=== PATIENT | male | born 1950 | race Hispanic/Latino ===

== ENCOUNTER 2019-01-20 05:44 | Day surgery (SDC) | payer OTHER ==
[2019-01-20] MEDS ORDERED: BACTERIOSTATIC SODIUM CHLORIDE 0.9% 30 ML VIAL INFILTRATI ONE (06:15)
[2019-01-20] MEDS ORDERED: ONDANSETRON 4 MG/2 ML INJ IV PRN (07:07)
--- NOTE | 2019-01-20 07:08 | Anesthesia Day of Surgery ---
Anesthesia Day of Surgery - Day of Surgery Patient Examined: Yes Patient H&P Reviewed: Yes Patient is NPO: Yes
--- NOTE | 2019-01-20 07:10 | Anesthesia Consultation ---
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
[2019-01-20] MEDS ORDERED: PROPOFOL 200 MG/20 ML VIAL IV ONE (07:20)
[2019-01-20] MEDS ORDERED: fentaNYL 100 MCG/2 ML INJ ONE ×2 (07:20→08:36)
[2019-01-20] MEDS ORDERED: LIDOCAINE MPF (2%) 20 MG/1 ML VIAL 5 ML ONE (07:20)
[2019-01-20] MEDS ORDERED: LACTATED RINGERS 1,000 ML IV SCH (08:00)
[2019-01-20] MEDS ORDERED: ceFAZolin/STERILE WATER 2 GM/20 ML SYRINGE IV NR (08:00)
[2019-01-20] MEDS ORDERED: WATER FOR IRRIG STERILE 2000 ML IR ONE (08:05)
[2019-01-20] MEDS ORDERED: ONDANSETRON 4 MG/2 ML INJ ONE (08:30)
[2019-01-20] MEDS ORDERED: PHENYLEPHRINE 10 MG/1 ML INJ SDV ONE (08:30)
[2019-01-20] MEDS ORDERED: dexAMETHasone 20 MG/5 ML VIAL ONE (08:30)
[2019-01-20] MEDS ORDERED: GLYCOPYRROLATE 0.4 MG/2 ML INJ ONE (08:30)
--- NOTE | 2019-01-20 08:44 | Post Operative Note ---
Date of procedure: 01/20/19 Pre-op diagnosis: r stone ureter Post-op diagnosis: same Findings: encrusted stebnt Procedure: cysto ureteroscopy stent cjhange Anesthesia: GETA Surgeon: LEVON BROUSSARD Estimated blood loss: none Pathology: list (stone) Specimen disposition: given to patient/family Condition: stable Disposition: PACU
--- NOTE | 2019-01-20 08:46 | Discharge Summary ---
Short Stay Discharge Plan Activity: other (no straining ) Weight Bearing Status: Full Weight Bearing Diet: low fat, low cholesterol, low salt Special Instructions: other (inc fluids ) Durable Medical Equipment Needed Upon Discharge: other (has j stent ) Follow up with: [facility] [Primary Care Provider] - 7 Days LEVON BROUSSARD MD [Staff Physician] - 7 Days
[2019-01-20] MEDS: fentaNYL 100 MCG/2 ML INJ IV PRN ×2 (09:03→09:15)
--- NOTE | 2019-01-20 09:10 | Fluoroscopy Report ---
Fluoroscopy retrograde urography HISTORY: Calculus of right ureter/kidney FINDINGS: 88 seconds of fluoroscopy time was provided by radiology during retrograde urography by the urologist. 6 fluoroscopic images are presented. Finished Gar[employer] film demonstrates a right ureteral stent which is in good position. Right ureteroscopy was performed. 2 stones and gravel were removed with grasper per the operative notes. The right ureteral stent was replaced with good drainage of the right colle cting system on the final image. No images of the left collecting system are provided. Please correla te with the procedural report as needed. Signer Name: Chad Cedeño Jr, MD Signed: 01/20/2019 9:05 AM Workstation Name: [id number]
--- NOTE | 2019-01-20 09:12 | Operative Report ---
PREOPERATIVE DIAGNOSES: Retained stent, right ureteral stone, poorly compliant patient. POSTOPERATIVE DIAGNOSES: Retained stent, right ureteral stone, poorly compliant patient. PROCEDURE: Cystoscopy, insertion of open-ended stent, removal of old stent, ureteroscopy, extraction of stone, retrograde and replacement of stent with a string. SURGEON: Dr. Guillen. ANESTHESIA: General. FINDINGS: This is a gentleman, poorly compliant, has a stent placed at the [facility], has a stone and now presents for treatment. DESCRIPTION OF PROCEDURE: The patient was brought to the operating room and placed on the operating table. Following induction of anesthesia, placed in lithotomy position, prepped and draped in usual sterile fashion. Cystourethroscopy showed an encrusted stent. It was partially removed and we placed an open-ended alongside it, so that we would not damage the ureter. The stent did come out. We were unable to place a wire through the stent. At this point, the open-ended was exchanged for a wire and ureteroscopy showed the stone to be distal. We were able to do a flexible ureteroscopy. This distal stone was extracted with the rigid ureteroscope and given to the patient. The patient tolerated the procedure well. A 7-Venezuel[place] 24 cm J-stent coiled in the kidney and bladder. The patient tolerated the procedure well and brought to recovery in stable condition. JOB# [id number] ROX/JACK
[2019-01-20 09:50] VITALS: BP 148/72
--- NOTE | 2019-01-20 17:45 | Post Anesthesia Evaluation ---
- Post Anesthesia Evaluation Patient Participated: Yes Airway Patent: Yes Stable Respiratory Function: Yes Nausea/Vomiting: No Temp > 96.8F: Yes Pain Manageable: Yes Adequeate Hydration: Yes Anesthesia Complications: No Block Receding Appropriately: Not Applicable Patient on Ventilator: No
== END 2019-01-20 05:45 | disposition home or self-care (01) ==
LOC: OR 05:44
PROVIDERS: ATTEND Urology
DX: N20.1 Calculus of ureter (principal); I10 Essential (primary) hypertension; G47.30 Sleep apnea, unspecified; M19.90 Unspecified osteoarthritis, unspecified site; F32.9 Major depressive disorder, single episode, unspecified; T83.89XA Other specified complication of genitourinary prosthetic devices, implants and grafts, initial encounter; Z72.89 Other problems related to lifestyle; Z91.041 Radiographic dye allergy status; Z79.899 Other long term (current) drug therapy; Z87.891 Personal history of nicotine dependence; Z98.49 Cataract extraction status, unspecified eye; Z85.46 Personal history of malignant neoplasm of prostate; Z98.890 Other specified postprocedural states; Y83.9 Surgical procedure, unspecified as the cause of abnormal reaction of the patient, or of later complication, without mention of misadventure at the time of the procedure; Y92.89 Other specified places as the place of occurrence of the external cause
CPT/HCPCS: 36415; 52332; 52352; 74420; 84132; A4217; C1726; C1758; C1769; C2617; J0690; J1100; J2370; J2405; J2704; J3010; J7120; Q9967

== ENCOUNTER 2021-10-09 09:47 | Inpatient (IN) | payer MEDICARE, OTHER ==
[2021-10-09] MEDS ORDERED: dexAMETHasone 4 MG/ML VIAL IV ONE (10:21)
[2021-10-09] MEDS ORDERED: FUROSEMIDE 40 MG/4 ML INJ IV ONE (10:21)
--- NOTE | 2021-10-09 10:23 | Emergency Department Report ---
ED General Adult HPI - General Chief complaint: Dyspnea/Respdistress Stated complaint: MERRY PUI?: Yes Time Seen by Provider: 10/09/21 10:04 Source: patient, EMS (Verbal report received from emergency medical services. EMS documentation not available at time of chart dictation ), old records reviewed Mode of arrival: Stretcher Limitations: Physical Limitation - History of Present Illness Initial comments: The patient was evaluated in the emergency department for symptoms described in the history of present illness. He/she was evaluated in the context of the global COVID-19 pandemic, which necessitated consideration that the patient might be at risk for infection with the virus that causes COVID-19. Institutional protocols and algorithms that pertain to the evaluation of patients at risk for COVID-19 are in a state of rapid change based on information released by regulatory bodies including the CDC and federal and [facility] organizations. These policies and algorithms were followed during the patient's care in the emergency department. Please note that these policies, procedures and recommendations changed on a rapid basis. During the history and physical examination, I had on complete personal protective equipment. The patient is a 70-year-old gentleman, who typically follows with the [facility]. He reports a COVID-19 diagnosis last week. He presents to the ER today with complaint of painless shortness of breath. EMS reports that the patient is hypoxic in the field. I started the patient on CPAP in the field. The patient feels improved with CPAP and BiPAP here in the emergency room. He endorses loss of taste and smell. He endorses diarrhea. He denies travel, surgery, and immobilization. He endorses lower extremity swelling, and thinks that he might have a history of CHF but is not certain. -: Gradual, days(s) Location: left, right, lower extremity Consistency: constant Improves with: rest, other (Initiation of BiPAP) Worsens with: movement - Related Data Home Medications Medication Instructions Recorded Confirmed Last Taken Acetaminophen [Tylenol] 500 mg PO PRN PRN 01/15/19 01/15/19 Unknown Sertraline [Zoloft] 100 mg PO QDAY 01/15/19 01/15/19 01/19/19 22:00 Tamsulosin [Flomax] 0.4 mg PO QDAY 01/15/19 01/15/19 01/19/19 22:00 hydroCHLOROthiazide [HCTZ] 25 mg PO QDAY 01/15/19 01/15/19 01/19/19 22:00 traMADoL [Ultram] 50 mg PO Q4HR PRN 01/15/19 01/15/19 Unknown Allergies Allergy/AdvReac Type Severity Reaction Status Date / Time Iodinated Contrast Media Allergy SWEATING Verified 01/15/19 15:51 ED Review of Systems ROS: Stated complaint: MERRY Other details as noted in HPI Comment: Unobtainable due to pts medical conditions Constitutional: malaise, weakness ENT: congestion Respiratory: cough, shortness of breath Cardiovascular: edema. denies: chest pain Gastrointestinal: denies: abdominal pain, hematemesis, melena, hematochezia Musculoskeletal: back pain, arthralgia, myalgia Neurological: weakness Hematological/Lymphatic: denies: easy bleeding ED Past Medical Hx - Past Medical History Hx Hypertension: Yes (X 25 YRS) Hx Arthritis: Yes Hx Kidney Stones: Yes Hx HIV: No - Social History Smoking Status: Former Smoker - Medications Home Medications: Home Medications Medication Instructions Recorded Confirmed Last Taken Type Acetaminophen [Tylenol] 500 mg PO PRN PRN 01/15/19 01/15/19 Unknown History Sertraline [Zoloft] 100 mg PO QDAY 01/15/19 01/15/19 01/19/19 22:00 History Tamsulosin [Flomax] 0.4 mg PO QDAY 01/15/19 01/15/19 01/19/19 22:00 History hydroCHLOROthiazide [HCTZ] 25 mg PO QDAY 01/15/19 01/15/19 01/19/19 22:00 History traMADoL [Ultram] 50 mg PO Q4HR PRN 01/15/19 01/15/19 Unknown History ED Physical Exam - General Limitations: Physical Limitation General appearance: alert, anxious, in distress, obese - Head Head exam: Present: atraumatic, normocephalic - Eye Eye exam: Present: normal appearance, EOMI. Absent: nystagmus - ENT ENT exam: Present: normal exam, mucous membranes moist, normal external ear exam - Neck Neck exam: Present: normal inspection, full ROM. Absent: tenderness, men ingismus - Respiratory Respiratory exam: Present: respiratory distress, wheezes, rales, rhonchi, accessory muscle use. Absent: stridor - Cardiovascular Cardiovascular Exam: Present: regular rate, normal rhythm, JVD. Absent: tachycardia, irregular rhythm, systolic murmur, diastolic murmur, rubs, gallop - GI/Abdominal GI/Abdominal exam: Present: soft. Absent: distended, tenderness, guarding, rebound, rigid, pulsatile mass - Rectal Rectal exam: Present: deferred - Extremities Exam Extremities exam: Present: normal inspection, pedal edema, other (2+ pulses noted in the bilateral upper and lower extremities. There is no palpable cord. negative Homans sign. Muscular compartments are soft. The pelvis is stable.). Absent: calf tenderness - Back Exam Back exam: Present: normal inspection. Absent: tenderness, CVA tenderness (R), CVA tenderness (L), paraspinal tenderness, vertebral tenderness - Neurological Exam Neurological exam: Present: alert, oriented X3, other (There is no facial droop. The tongue is midline. EOMI. 5 out of 5 strength in 4 extremities.) - Psychiatric Psychiatric exam: Present: anxious - Skin Skin exam: Present: warm, dry, intact, normal color. Absent: rash ED Course Vital Signs 10/09/21 10:21 Pulse Rate 110 H Respiratory 37 H Rate Blood Pressure 195/105 O2 Sat by Pulse 98 Oximetry - Reevaluation(s) Reevaluation #1: 10/09/21 12:03 Differential diagnosis, include but not limited to: Congestive heart failure, pneumonia, COVID-19, multifactorial respiratory failure Assessment and plan: 70-year-old gentleman, morbidly obese, most likely has obstructive sleep apnea, pulmonary hypertension, congestive heart failure, now complicated by recent diagnosis of COVID-19, with acute hypoxic respiratory f ailure, requiring initiation of BiPAP therapy. Placed patient on BiPAP. Start steroids empirically, and Lasix. Cover with antibiotics. Appreciate the patient ruling in for systemic inflammatory response syndrome. He is volume overloaded. IV fluids contraindicated. Hospital physician, Dr. Mills to admit patient to the medical service. The patient is agreeable to admission and hospitalization. He is improved on BiPAP. Continue isolation precautions. ED Medical Decision Making - Lab Data Result diagrams: 10/09/21 11:23 10/09/21 11:23 Vital Signs 10/09/21 10:21 Pulse Rate 110 H Respiratory 37 H Rate Blood Pressure 195/105 O2 Sat by Pulse 98 Oximetry Lab Results 10/09/21 10/09/21 10/09/21 Range/Units 11:23 11:23 11:23 WBC 14.2 H (4.5-11.0) K/mm3 RBC 3.77 (3.65-5.03) M/mm3 Hgb 9.5 L (11.8-15.2) gm/dl Hct 30.0 L (35.5-45.6) % MCV 80 L (84-94) fl MCH 25 L (28-32) pg MCHC 32 (32-34) % RDW 18.0 H (13.2-15.2) % Plt Count 365 (140-440) K/mm3 Seg Neutrophils % Entry Level Staff Accountant PT 14.1 (12.2-14.9) Sec. INR 0.98 (0.87-1.13) APTT 30.6 (24.2-36.6) Sec. Sodium 140 (137-145) mmol/L Potassium 3.9 (3.6-5.0) mmol/L Chloride 102.1 (98-107) mmol/L Carbon Dioxide 27 (22-30) mmol/L Anion Gap 15 mmol/L BUN 12 (9-20) mg/dL Creatinine 1.1 (0.8-1.3) mg/dL Estimated GFR > 60 ml/min BUN/Creatinine Ratio 11 % Glucose 140 H (75-100) mg/dL Lactic Acid (0.7-2.0) mmol/L Calcium 8.6 (8.4-10.2) mg/dL Magnesium 2.00 (1.7-2.3) mg/dL Total Bilirubin 0.20 (0.1-1.2) mg/dL AST 25 (5-40) units/L ALT 17 (7-56) units/L Alkaline Phosphatase 76 (35-129) units/L Total Creatine Kinase 109 (55-170) units/L Troponin T < 0.010 (0.00-0.029) ng/mL NT-Pro-B Natriuret Pep 8018 H (0-900) pg/mL Total Protein 6.2 L (6.3-8.2) g/dL Albumin 3.9 (3.9-5) g/dL Albumin/Globulin Ratio 1.7 % 10/09/21 Range/Units 11:23 WBC (4.5-11.0) K/mm3 RBC (3.65-5.03) M/mm3 Hgb (11.8-15.2) gm/dl Hct (35.5-45.6) % MCV (84-94) fl MCH (28-32) pg MCHC (32-34) % RDW (13.2-15.2) % Plt Count (140-440) K/mm3 Seg Neutrophils % PT (12.2-14.9) Sec. INR (0.87-1.13) APTT (24.2-36.6) Sec. Sodium (137-145) mmol/L Potassium (3.6-5.0) mmol/L Chloride (98-107) mmol/L Carbon Dioxide (22-30) mmol/L Anion Gap mmol/L BUN (9-20) mg/dL Creatinine (0.8-1.3) mg/dL Estimated GFR ml/min BUN/Creatinine Ratio % Glucose (75-100) mg/dL Lactic Acid 1.60 (0.7-2.0) mmol/L Calcium (8.4-10.2) mg/dL Magnesium (1.7-2.3) mg/dL Total Bilirubin (0.1-1.2) mg/dL AST (5-40) units/L ALT (7-56) units/L Alkaline Phosphatase (35-129) units/L Total Creatine Kinase (55-170) units/L Troponin T (0.00-0.029) ng/mL NT-Pro-B Natriuret Pep (0-900) pg/mL Total Protein (6.3-8.2) g/dL Albumin (3.9-5) g/dL Albumin/Globulin Ratio % - EKG Data -: EKG Interpreted by Al EKG shows normal: sinus rhythm Rate: normal - EKG Data When compared to previous EKG there are: previous EKG unavailable 10/09/21 11:56 The EKG is interpreted at 10: 32 This is a sinus rhythm, with ventricular rate of 85 bpm. There is a normal axis. There are PVCs. There is a prolonged QTC. There is motion artifact. There is poor R wave progression. This is an abnormal EKG. There is no prior for comparison. This is not a STEMI - Radiology Data Radiology results: pending, report reviewed, image reviewed CHEST 1 VIEW 10/09/2021 10:44 AM INDICATION / CLINICAL INFORMATION: Dyspnea. COMPARISON: None available. FINDINGS: SUPPORT DEVICES: None. HEART / MEDIA STINUM: No significant abnormality. LUNGS / PLEURA: Hazy interstitial opacities in both lungs. Suggestion of bilateral pleural effusions. No pneumothorax. ADDITIONAL FINDINGS: Severe bilateral glenohumeral degeneration. IMPRESSION: 1. Hazy interstitial opacities in both lungs suggesting pulmonary edema versus atypical infectious process. There is suggestion bilateral pleural effusions. Signer Name: Sourav Ruiz DO Signed: 10/09/2021 9:58 AM Workstation Name: [id number] Critical Care Time: Yes Critical care time in (mins) excluding proc time.: 35 Critical care attestation.: If time is entered above; I have spent that time in minutes in the direct care of this critically ill patient, excluding procedure time. ED Disposition Clinical Impression: Acute respiratory failure with hypoxia, COVID-19 Disposition: 09 ADMITTED INPATIENT Is pt being admited?: Yes Does the pt Need Aspirin: No Condition: Serious
--- NOTE | 2021-10-09 11:02 | XRay Report ---
CHEST 1 VIEW 10/09/2021 10:44 AM INDICATION / CLINICAL INFORMATION: Dyspnea. COMPARISON: None available. FINDINGS: SUPPORT DEVICES: None. HEART / MEDIASTINUM: No significant abnormality. LUNGS / PLEURA: Hazy interstitial opacities in both lungs. Suggestion of bilateral pleural effusions. No pneumothorax. ADDITIONAL FINDINGS: Severe bilateral glenohumeral degeneration. IMPRESSION: 1. Hazy interstitial opacities in both lungs suggesting pulmonary edema versus atypical infectious pr ocess. There is suggestion bilateral pleural effusions. Signer Name: Sourav Ruiz DO Signed: 10/09/2021 10:58 AM Workstation Name: [email or web address]
--- NOTE | 2021-10-09 11:50 | History and Physical Report ---
History of Present Illness Chief complaint: I do not feel good and I am short of breath History of present illness: 70 YO Male with CHF, HTN, OA, BPH, Nephrolithiasis, coronavirus infection diagnosed last week presents to ED for evaluation. Patient reports "I do not feel good and I am short of breath". Patient states that over the past week he has experienced shortness of breath, decreased exercise tolerance, dyspnea on exertion, dyspnea at rest, lower extremity edema, orthopnea, as well as paroxysmal nocturnal dyspnea. Patient underwent outpatient coronavirus testing and was found to have a positive coronavirus test 2 days ago. EMS was notified and upon arrival the patient was found to be in distress and subsequent transported to [facility] for further care and evaluation of the aforementioned symptoms. Patient was seen and evaluated emergency department all lab and imaging studies reviewed. Patient was found to have a pulse oximetry of 88% on room air which is consistent with acute hypoxemic respiratory failure. Chest x- ray revealed bilateral pneumonia. Patient also found to have clinical symptoms consistent with CHF decompensation as well as elevated hypertension. Patient admitted to medical floor due to increased risk of worsening symptoms after medical stabilization. Patient initiated on coronavirus protocol as well as pneumonia protocol and CHF protocol. Patient denies fever, chills, chest pain, palpitation, skin rash. No prior admission for review. No medication listed at time of admission for reconciliation. Advanced care planning conducted in ED. Past History Past Medical History: arthritis, heart failure, hypertension, other (See HPI) Past Surgical History: No surgical history, Other (Reviewed) Social history: Family history: hypertension Medications and Allergies Allergies Allergy/AdvReac Type Severity Reaction Status Date / Time Iodinated Contrast Media Allergy SWEATING Verified 01/15/19 15:51 Home Medications Medication Instructions Recorded Confirmed Last Taken Type Acetaminophen [Tylenol] 500 mg PO PRN PRN 01/15/19 01/15/19 Unknown History Sertraline [Zoloft] 100 mg PO QDAY 01/15/19 01/15/19 01/19/19 22:00 History Tamsulosin [Flomax] 0.4 mg PO QDAY 01/15/19 01/15/19 01/19/19 22:00 History hydroCHLOROthiazide [HCTZ] 25 mg PO QDAY 01/15/19 01/15/19 01/19/19 22:00 History traMADoL [Ultram] 50 mg PO Q4HR PRN 01/15/19 01/15/19 Unknown History Review of Systems Constitutional: no weight loss, no weight gain, no fever, no chills Ears, nose, mouth and throat: no ear pain, no ear discharge, no sinus pain Cardiovascular: orthopnea, shortness of breath, dyspnea on exertion, paroxysmal nocturnal dyspnea, leg edema, decreased exercise tolerance Respiratory: no cough, no cough with sputum, no excessive sputum Gastrointestinal: no abdominal pain, no nausea, no vomiting, no diarrhea, no constipation Genitourinary Male: no hematuria, no flank pain, no discharge, no urinary frequency Rectal: no pain, no incontinence, no bleeding Musculoskeletal: no neck stiffness, no neck pain, no shooting arm pain, no arm numbness/tingling Integumentary: no rash, no redness, no sores, no wounds Neurological: no head injury, no paralysis, no numbness, no seizures Psychiatric: no anxiety, no memory loss, no hypersomnia, no change in libido, no suicidal ideation Endocrine: no cold intolerance, no polyphagia, no polydipsia, no polyuria, no excessive sweating Hematologic/Lymphatic: no easy bruising, no easy bleeding Allergic/Immunologic: no urticaria, no allergic rhinitis, no wheezing Exam - Constitutional Vitals: Temp Pulse Resp BP Pulse Ox 110 H 37 H 195/105 98 10/09/21 10:21 10/09/21 10:21 10/09/21 10:21 10/09/21 10:21 General appearance: Present: mild distress - EENT Eyes: Present: PERRL ENT: hearing intact, clear oral mucosa - Neck Neck: Present: supple, normal ROM - Respiratory Respiratory effort: labored Respiratory: bilateral: diminished, rales - Cardiovascular Heart Sounds: Present: S1 & S2. Absent: rub, click - Extremities Extremities: no ischemia Extremity abnormal: edema Peripheral Pulses: within normal limits - Abdominal General gastrointestinal: Present: soft, non-tender, non-distended, normal bowel sounds Male genitourinary: Present: normal - Integumentary Integumentary: Present: clear, warm, dry - Musculoskeletal Musculoskeletal: gait normal, strength equal bilaterally - Psychiatric Psychiatric: appropriate mood/affect, intact judgment & insight - Neurologic Neurologic: CNII-XII intact, moves all extremities Results - Labs CBC & Chem 7: 10/09/21 11:23 10/09/21 11:23 Assessment and Plan - Patient Problems (1) Acute respiratory failure with hypoxia Current Visit: No Status: Acute Plan to address problem: Chest x-ray, supplemental oxygen, pulse oximetry, nebulizer therapy, pulmonary toilet, (2) CHF (congestive heart failure) Current Visit: Yes Status: Acute Qualifiers: Heart failure chronicity: unspecified Plan to address problem: Strict I's/O, monitor urine output every shift, daily weight, afterload reduction, blood pressure control, supplemental oxygen, pulse oximetry, thyroid panel, magnesium level, diuresis, echocardiogram ordered and pending at time of admission, cardiology team consulted. (3) Coronavirus infection Current Visit: Yes Status: Acute Plan to address problem: IV antibiotic therapy, IV steroid therapy, supplemental oxygen, pulse oximetry, vitamin C therapy, vitamin D therapy, zinc therapy, prophylactic anticoagulation. (4) Pneumonia Current Visit: Yes Status: Acute Plan to address problem: Chest x-ray, supplemental oxygen, pulse oximetry, nebulizer therapy, IV antibiotic therapy, supportive care, pulse oximetry. (5) Accelerated hypertension Current Visit: Yes Status: Acute Plan to address problem: Monitor blood pressure every shift, continue medical management. (6) DVT prophylaxis Current Visit: Yes Status: Acute Plan to address problem: SCD to bilateral lower extremities while in bed, prophylactic anticoagulation. (7) Advance care planning Current Visit: Yes Status: Acute Plan to address problem: Disease education done, care plan discussed, diagnoses discussed, prognosis discussed, patient is full code. Patient acknowledges understanding agreement with care plan, +30 minutes. (8) Preventative health care Current Visit: Yes Status: Acute Plan to address problem: Patient counseled regarding risk factor reduction, home safety, outpatient follow-up with primary care physician for all age and risk factor appropriate screening test. +30 minutes.
[2021-10-09] MEDS ORDERED: HYDROmorphone 0.5 MG/0.5 ML INJ IV PRN (11:54)
[2021-10-09] MEDS ORDERED: ALBUTEROL 2.5 MG/3 ML NEBU IH PRN (11:54)
[2021-10-09] MEDS ORDERED: ONDANSETRON 4 MG/2 ML INJ IV PRN (11:54)
[2021-10-09] MEDS ORDERED: oxyCODONE /ACETAMINOPHEN 5-325MG TAB PO PRN (11:54)
[2021-10-09] MEDS ORDERED: ACETAMINOPHEN 325 MG TAB PO PRN (11:54)
[2021-10-09] MEDS ORDERED: AZITHROMYCIN/NS 500 MG/250 ML 500 MG/250 ML BAG IV ONE (11:55)
[2021-10-09] MEDS ORDERED: cefTRIAXone/NS 1 GM/50 ML 1 GM/50 ML BAG IV ONE (11:55)
[2021-10-09 11:56] LABS: INR 0.98 (0.87-1.13)
[2021-10-09] MEDS ORDERED: traMADol 50 MG TAB PO PRN (11:56)
[2021-10-09 12:00] LABS: Partial Thromboplastin Time 30.6 Sec. (24.2-36.6)
[2021-10-09 12:12] LABS: Hemoglobin 9.5 gm/dl (11.8-15.2); Mean Corpuscular HGB Conc 32 % (32-34); Mean Corpuscular Volume 80 fl (84-94); Platelet Count 365 K/mm3 (140-440); Red Blood Count 3.77 M/mm3 (3.65-5.03)
[2021-10-09 12:13] LABS: Alanine Aminotransferase 17 units/L (7-56); Albumin 3.9 g/dL (3.9-5); BUN/Creatinine Ratio 11; Blood Urea Nitrogen 12 mg/dL (9-20); Calcium 8.6 mg/dL (8.4-10.2); Hemolysis Index 1
[2021-10-09 13:34] LABS: Basophils % (Manual) 0 % (0.0-1.8); Eosinophils % (Manual) 0 % (0.0-4.3); Monocytes % (Manual) 0 % (0.0-7.3); Total Cells Counted 100
[2021-10-09 13:35] LABS: Ovalocytes Few; Platelet Estimate Consistent w Auto
[2021-10-09] MEDS: methylPREDNISolone Sod Succinate 40 MG/1 ML INJ IV SCH (22:39)
[2021-10-09] MEDS: ZINC SULFATE 220 MG CAP PO SCH (22:40)
[2021-10-09] MEDS: HEPARIN 5,000 UNIT/1 ML VIAL SUB-Q SCH (22:42)
[2021-10-09] MEDS: cefTRIAXone/NS 2 GM/100 ML 2 GM/100 ML BAG IV SCH (22:44)
[2021-10-09] MEDS: ASCORBIC ACID 500 MG TAB PO SCH (22:47)
[2021-10-10] MEDS ORDERED: FUROSEMIDE 20 MG/2 ML INJ IV SCH (06:00)
[2021-10-10] MEDS: methylPREDNISolone Sod Succinate 40 MG/1 ML INJ IV SCH (06:26)
[2021-10-10] MEDS: SERTRALINE 100 MG TAB PO SCH (09:00)
[2021-10-10] MEDS: hydroCHLOROthiazide 25 MG TAB PO SCH (09:02)
[2021-10-10] MEDS: TAMSULOSIN 0.4 MG CAP PO SCH (09:02)
[2021-10-10] MEDS: AZITHROMYCIN 250 MG TAB PO SCH (09:02)
[2021-10-10] MEDS: ASCORBIC ACID 500 MG TAB PO SCH ×2 (09:02→22:17)
[2021-10-10] MEDS: HEPARIN 5,000 UNIT/1 ML VIAL SUB-Q SCH (09:03)
[2021-10-10] MEDS: ZINC SULFATE 220 MG CAP PO SCH ×2 (09:03→22:17)
[2021-10-10] MEDS: CHOLECALCIFEROL (VIT D3) 400 UNIT TAB PO SCH (09:26)
--- NOTE | 2021-10-10 10:41 | Progress Note ---
Assessment and Plan Assessment and plan: Acute hypoxic respiratory failure CHF Accelerated hypertension Sepsis. POA. Patient meets criteria given the tachycardia, leukocytosis and diagnosis of pneumonia Bilateral pneumonia Chronic anemia 10/10/2021. Patient will continue on IV antibiotics. COVID PCR testing was found to be negative. Follow-up echocardiogram to assess systolic and diastolic function. Cardiology will hold Lasix today. BNP elevated at 8000. History Interval history: No new issues overnight Hospitalist Physical - Constitutional Vitals: Temp Pulse Resp BP Pulse Ox 98.3 F 72 20 111/57 94 10/10/21 04:43 10/10/21 04:43 10/10/21 04:43 10/10/21 04:43 10/10/21 04:43 General appearance: Present: mild distress - EENT Eyes: Present: PERRL, EOM intact ENT: hearing intact, clear oral mucosa, dentition normal - Neck Neck: Present: supple, normal ROM - Respiratory Respiratory effort: normal Respiratory: bilateral: CTA - Cardiovascular Rhythm: regular Heart Sounds: Present: S1 & S2. Absent: gallop, rub - Extremities Extremities: no ischemia, No edema, Full ROM - Abdominal General gastrointestinal: soft, non-tender, non-distended, normal bowel sounds - Integumentary Integumentary: Present: clear, warm, dry - Neurologic Neurologic: CNII-XII intact, moves all extremities HEART Score - HEART Score Troponin: Troponin T < 0.010 ng/mL (0.00-0.029) 10/09/21 11:23 Results - Labs CBC & Chem 7: 10/09/21 11:23 10/09/21 11:23 Labs: Laboratory Last Values WBC 14.2 K/mm3 (4.5-11.0) H 10/09/21 11:23 RBC 3.77 M/mm3 (3.65-5.03) 10/09/21 11:23 Hgb 9.5 gm/dl (11.8-15.2) L 10/09/21 11:23 Hct 30.0 % (35.5-45.6) L 10/09/21 11:23 MCV 80 fl (84-94) L 10/09/21 11:23 MCH 25 pg (28-32) L 10/09/21 11:23 MCHC 32 % (32-34) 10/09/21 11:23 RDW 18.0 % (13.2-15.2) H 10/09/21 11:23 Plt Count 365 K/mm3 (140-440) 10/09/21 11:23 Add Manual Diff Complete 10/09/21 11:23 Total Counted 100 10/09/21 11:23 Seg Neutrophils % [employer] 10/09/21 11:23 Seg Neuts % (Manual) 97.0 % (40.0-70.0) H 10/09/21 11:23 Band Neutrophils % 0 % 10/09/21 11:23 Lymphocytes % (Manual) 3.0 % (13.4-35.0) L 10/09/21 11:23 Reactive Lymphs % (Man) 0 % 10/09/21 11:23 Monocytes % (Manual) 0 % (0.0-7.3) 10/09/21 11:23 Eosinophils % (Manual) 0 % (0.0-4.3) 10/09/21 11: Basophils % (Manual) 0 % (0.0-1.8) 10/09/21 11:23 Metamyelocytes % 0 % 10/09/21 11:23 Myelocytes % 0 % 10/09/21 11:23 Promyelocytes % 0 % 10/09/21 11:23 Blast Cells % 0 % 10/09/21 11:23 Nucleated RBC % Not Reportable 10/09/21 11:23 Seg Neutrophils # Man 13.8 K/mm3 (1.8-7.7) H 10/09/21 11:23 Band Neutrophils # 0.0 K/mm3 10/09/21 11:23 Lymphocytes # (Manual) 0.4 K/mm3 (1.2-5.4) L 10/09/21 11:23 Abs React Lymphs (Man) 0.0 K/mm3 10/09/21 11:23 Monocytes # (Manual) 0.0 K/mm3 (0.0-0.8) 10/09/21 11:23 Eosinophils # (Manual) 0.0 K/mm3 (0.0-0.4) 10/09/21 11:23 Basophils # (Manual) 0.0 K/mm3 (0.0-0.1) 10/09/21 11:23 Metamyelocytes # 0.0 K/mm3 10/09/21 11:23 Myelocytes # 0.0 K/mm3 10/09/21 11:23 Promyelocytes # 0.0 K/mm3 10/09/21 11:23 Blast Cells # 0.0 K/mm3 10/09/21 11:23 WBC Morphology Not Reportable 10/09/21 11:23 Hypersegmented Neuts Not Reportable 10/09/21 11:23 Hyposegmented Neuts Not Reportable 10/09/21 11:23 Hypogranular Neuts Not Reportable 10/09/21 11:23 Smudge Cells Not Reportable 10/09/21 11:23 Toxic Granulation Not Reportable 10/09/21 11:23 Toxic Vacuolation Not Reportable 10/09/21 11:23 Dohle Bodies Not Reportable 10/09/21 11:23 Pelger-Huet Anomaly Not Reportable 10/09/21 11:23 Giselle Rods Not Reportable 10/09/21 11:23 Platelet Estimate Consistent w auto 10/09/21 11:23 Clumped Platelets Not Reportable 10/09/21 11:23 Plt Clumps, EDTA Not Reportable 10/09/21 11:23 Large Platelets Not Reportable 10/09/21 11:23 Giant Platelets Not Reportable 10/09/21 11:23 Platelet Satelliting Not Reportable 10/09/21 11:23 Plt Morphology Comment Not Reportable 10/09/21 11:23 RBC Morphology Not Reportable 10/09/21 11:23 Dimorphic RBCs Not Reportable 10/09/21 11:23 Polychromasia Few 10/09/21 11:23 Hypochromasia Not Reportable 10/09/21 11:23 Poikilocytosis Not Reportable 10/09/21 11:23 Anisocytosis Not Reportable 10/09/21 11:23 Microcytosis Not Reportable 10/09/21 11:23 Macrocytosis Not Reportable 10/09/21 11:23 Spherocytes Not Reportable 10/09/21 11:23 Pappenheimer Bodies Not Reportable 10/09/21 11:23 Sickle Cells Not Reportable 10/09/21 11:23 Target Cells Not Reportable 10/09/21 11:23 Tear Drop Cells Not Reportable 10/09/21 11:23 Ovalocytes Few 10/09/21 11:23 Helmet Cells Not Reportable 10/09/21 11:23 Carreno-Bynum Bodies Not Reportable 10/09/21 11:23 Atalissa Rings Not Reportable 10/09/21 11:23 Vipul Cells Not Reportable 10/09/21 11:23 Bite Cells Not Reportable 10/09/21 11:23 Crenated Cell Not Reportable 10/09/21 11:23 Elliptocytes Not Reportable 10/09/21 11:23 Acanthocytes (Spur) Not Reportable 10/09/21 11:23 Rouleaux Not Reportable 10/09/21 11:23 Hemoglobin C Crystals Not Reportable 10/09/21 11:23 Schistocytes Not Reportable 10/09/21 11:23 Malaria parasites Not Reportable 10/09/21 11:23 Dillon Bodies Not Reportable 10/09/21 11:23 Hem Pathologist Commnt No 10/09/21 11:23 PT 14.1 Sec. (12.2-14.9) 10/09/21 11:23 INR 0.98 (0.87-1.13) 10/09/21 11:23 APTT 30.6 Sec. (24.2-36.6) 10/09/21 11:23 Sodium 140 mmol/L (137-145) 10/09/21 11:23 Potassium 3.9 mmol/L (3.6-5.0) 10/09/21 11:23 Chloride 102.1 mmol/L (98-107) 10/09/21 11:23 Carbon Dioxide 27 mmol/L (22-30) 10/09/21 11:23 Anion Gap 15 mmol/L 10/09/21 11:23 BUN 12 mg/dL (9-20) 10/09/21 11:23 Creatinine 1.1 mg/dL (0.8-1.3) 10/09/21 11:23 Estimated GFR > 60 ml/min 10/09/21 11:23 BUN/Creatinine Ratio 11 % 10/09/21 11:23 Glucose 140 mg/dL (75-100) H 10/09/21 11:23 Lactic Acid 1.60 mmol/L (0.7-2.0) 10/09/21 11:23 Calcium 8.6 mg/dL (8.4-10.2) 10/09/21 11:23 Magnesium 2.00 mg/dL (1.7-2.3) 10/09/21 11:23 Total Bilirubin 0.20 mg/dL (0.1-1.2) 10/09/21 11:23 AST 25 units/L (5-40) 10/09/21 11:23 ALT 17 units/L (7-56) 10/09/21 11:23 Alkaline Phosphatase 76 units/L (35-129) 10/09/21 11:23 Total Creatine Kinase 109 units/L (55-170) 10/09/21 11:23 Troponin T < 0.010 ng/mL (0.00-0.029) 10/09/21 11:23 NT-Pro-B Natriuret Pep 8018 pg/mL (0-900) H 10/09/21 11:23 Total Protein 6.2 g/dL (6.3-8.2) L 10/09/21 11:23 Albumin 3.9 g/dL (3.9-5) 10/09/21 11:23 Albumin/Globulin Ratio 1.7 % 10/09/21 11:23 Coronavirus (PCR) Negative (Negative) 10/09/21 Unknown Microbiology: Microbiology 10/09/21 20:49 Peripheral/Venous Blood Culture - Preliminary Culture in Progress 10/09/21 20:49 Peripheral/Venous Blood Culture - Preliminary Culture in Progress Perez/IV: Voiding Method Urinal Active Medications - Current Medications Current Medications: Generic Name Dose Route Start Last Admin Trade Name Freq PRN Reason Stop Dose Admin Acetaminophen 650 mg 10/09/21 11:54 Acetaminophen 325 Mg Tab PO Q4H PRN Pain MILD(1-3)/Fever >100.5/CALABRESE Albuterol 2.5 mg 10/09/21 11:54 Albuterol 2.5 Mg/3 Ml Nebu IH Q4HRT PRN Shortness Of Breath Ascorbic Acid 500 mg 10/09/21 22:00 10/10/21 09:02 Ascorbic Acid 500 Mg Tab PO 500 mg BID JHONY Administration Azithromycin 500 mg 10/10/21 10:00 10/10/21 09:02 Azithromycin 250 Mg Tab PO 10/13/21 10:01 500 mg QDAY JHONY Administration Protocol Cholecalciferol 1,000 unit 10/10/21 10:00 10/10/21 09:26 Cholecalciferol (Vit D3) 400 Unit Tab PO 1,000 unit QDAY JHONY Administration Furosemide 20 mg 10/10/21 06:00 10/10/21 06:26 Furosemide 20 Mg/2 Ml Inj IV 20 mg BID@0600,1800 JHONY Administration Heparin Sodium (Porcine) 5,000 unit 10/09/21 22:00 10/10/21 09:03 Heparin 5,000 Unit/1 Ml Vial SUB-Q 5,000 unit Q12HR JHONY Administration Hydrochlorothiazide 25 mg 10/10/21 10:00 10/10/21 09:02 Hydrochlorothiazide 25 Mg Tab PO 25 mg QDAY JHONY Administration Hydromorphone HCl 0.5 mg 10/09/21 11:54 10/10/21 00:33 Hydromorphone 0.5 Mg/0.5 Ml Inj IV 0.5 mg Q23H PRN Administration Pain , Severe (7-10) Ceftriaxone Sodium 2 gm in 100 mls @ 200 mls/hr 10/09/21 20:00 10/09/21 22:44 Rocephin/Ns 2 Gm/100 Ml IV 10/13/21 23:59 200 mls/hr Q24H JHONY Administration Protocol Methylprednisolone Sodium Succinate 40 mg 10/09/21 22:00 10/10/21 06:26 Methylprednisolone Sod Succinate 40 Mg/1 Ml Inj IV 40 mg Q8HR JHONY Administration Ondansetron HCl 4 mg 10/09/21 11:54 Ondansetron 4 Mg/2 Ml Inj IV Q8H PRN Nausea And Vomiting Oxycodone/Acetaminophen 1 tab 10/09/21 11:54 Oxycodone /Acetaminophen 5-325mg Tab PO Q16H PRN Pain, Moderate (4-6) Sertraline HCl 100 mg 10/10/21 10:00 10/10/21 09:00 Sertraline 100 Mg Tab PO 100 mg QDAY JHONY Administration Sodium Chloride 10 ml 10/09/21 22:00 10/10/21 09:02 Sodium Chloride 0.9% 10 Ml Flush Syringe IV 10 ml BID JHONY Administration Sodium Chloride 10 ml 10/09/21 11:54 Sodium Chloride 0.9% 10 Ml Flush Syringe IV PRN PRN LINE FLUSH Tamsulosin HCl 0.4 mg 10/10/21 10:00 10/10/21 09:02 Tamsulosin 0.4 Mg Cap PO 0.4 mg QDAY JHONY Administration Zinc Sulfate 220 mg 10/09/21 22:00 10/10/21 09:03 Zinc Sulfate 220 Mg Cap PO 220 mg BID JHONY Administration
--- NOTE | 2021-10-10 12:39 | Consultation ---
History of Present Illness Consult date: 10/10/21 Requesting physician: LAMIN MARCANO Consult reason: congestive heart failure History of present illness: Patient is a 70-year-old male with a past medical history of hypertension, arthritis, and recent COVID infection which was diagnosed last week. Patient presents to the ED with a complaint of shortness of breath which she reports has been going on for the last week and worsened over the last few days. Patient notified EMS due to shortness of breath and was found to be hypoxic and started on CPAP and BiPAP in the ED. Patient found to have elevated BNP, leukocytosis, and CXR shows pulmonary edema versus atypical infection. Patient's COVID test came back negative. At time of interview patient reports feeling significantly better and is no longer requiring BiPAP or nasal cannula patient is on room air. Patient denies chest pain, orthopnea, palpitations, diaphoresis, nausea, vomiting. Patient is previously unknown to our practice however [facility] Cardiology was consulted for CHF Past History Past Medical History: arthritis, heart failure, hypertension, other (See HPI) Past Surgical History: No surgical history, Other (Reviewed) Social history: Family history: hypertension Medications and Allergies Allergies Allergy/AdvReac Type Severity Reaction Status Date / Time Iodinated Contrast Media Allergy SWEATING Verified 01/15/19 15:51 Home Medications Medication Instructions Recorded Confirmed Last Taken Type Acetaminophen [Tylenol] 500 mg PO PRN PRN 01/15/19 01/15/19 Unknown History Sertraline [Zoloft] 100 mg PO QDAY 01/15/19 01/15/19 01/19/19 22:00 History Tamsulosin [Flomax] 0.4 mg PO QDAY 01/15/19 01/15/19 01/19/19 22:00 History hydroCHLOROthiazide [HCTZ] 25 mg PO QDAY 01/15/19 01/15/19 01/19/19 22:00 History traMADoL [Ultram] 50 mg PO Q4HR PRN 01/15/19 01/15/19 Unknown History Active Meds: Active Medications Acetaminophen (Acetaminophen 325 Mg Tab) 650 mg PO Q4H PRN PRN Reason: Pain MILD(1-3)/Fever >100.5/CALABRESE Albuterol (Albuterol 2.5 Mg/3 Ml Nebu) 2.5 mg IH Q4HRT PRN PRN Reason: Shortness Of Breath Apixaban (Apixaban 5 Mg Tab) 5 mg PO Q12HR [facility]; Protocol Ascorbic Acid (Ascorbic Acid 500 Mg Tab) 500 mg PO BID [facility] Last Admin: 10/10/21 09:02 Dose: 500 mg Azithromycin (Azithromycin 250 Mg Tab) 500 mg PO QDAY [facility]; Protocol Stop: 10/13/21 10:01 Last Admin: 10/10/21 09:02 Dose: 500 mg Cholecalciferol (Cholecalciferol (Vit D3) 400 Unit Tab) 1,000 unit PO QDAY [facility] Last Admin: 10/10/21 09:26 Dose: 1,000 unit Hydrochlorothiazide (Hydrochlorothiazide 25 Mg Tab) 25 mg PO QDAY [facility] Last Admin: 10/10/21 09:02 Dose: 25 mg Hydromorphone HCl (Hydromorphone 0.5 Mg/0.5 Ml Inj) 0.5 mg IV Q23H PRN PRN Reason: Pain , Severe (7-10) Last Admin: 10/10/21 00:33 Dose: 0.5 mg Ceftriaxone Sodium (Rocephin/Ns 2 Gm/100 Ml) 2 gm in 100 mls @ 200 mls/hr IV Q24H [facility]; Protocol Stop: 10/13/21 23:59 Last Admin: 10/09/21 22:44 Dose: 200 mls/hr Metoprolol Tartrate (Metoprolol Tartrate 25 Mg Tab) 25 mg PO BID [facility] Ondansetron HCl (Ondansetron 4 Mg/2 Ml Inj) 4 mg IV Q8H PRN PRN Reason: Nausea And Vomiting Oxycodone/Acetaminophen (Oxycodone /Acetaminophen 5-325mg Tab) 1 tab PO Q16H PRN PRN Reason: Pain, Moderate (4-6) Sertraline HCl (Sertraline 100 Mg Tab) 100 mg PO QDAY [facility] Last Admin: 10/10/21 09:00 Dose: 100 mg Sodium Chloride (Sodium Chloride 0.9% 10 Ml Flush Syringe) 10 ml IV BID [facility] Last Admin: 10/10/21 09:02 Dose: 10 ml Sodium Chloride (Sodium Chloride 0.9% 10 Ml Flush Syringe) 10 ml IV PRN PRN PRN Reason: LINE FLUSH Tamsulosin HCl (Tamsulosin 0.4 Mg Cap) 0.4 mg PO QDAY [facility] Last Admin: 10/10/21 09:02 Dose: 0.4 mg Zinc Sulfate (Zinc Sulfate 220 Mg Cap) 220 mg PO BID [facility] Last Admin: 10/10/21 09:03 Dose: 220 mg Review of Systems Constitutional: fatigue, no fever, no chills Ears, nose, mouth and throat: no sinus pressure, no sinus pain Cardiovascular: shortness of breath, dyspnea on exertion, no chest pain, no orthopnea Respiratory: shortness of breath, dyspnea on exertion Gastrointestinal: no abdominal pain, no nausea, no vomiting Musculoskeletal: no neck stiffness, no neck pain Integumentary: no rash, no pruritis, no redness Neurological: no head injury, no transient paralysis Psychiatric: no anxiety, no memory loss Endocrine: no cold intolerance, no heat intolerance Hematologic/Lymphatic: no easy bruising, no easy bleeding Physical Examination Vital Signs Pulse Resp BP Pulse Ox 110 H 37 H 195/105 98 10/09/21 10:21 10/09/21 10:21 10/09/21 10:21 10/09/21 10:21 General appearance: no acute distress Neck: Positive: trachea midline Cardiac: Positive: Reg Rate and Rhythm Lungs: Positive: Decreased Breath Sounds Neuro: Positive: Grossly Intact Abdomen: Positive: Soft Skin: Negative: Rash, Suspicious Lesions, Ulceration Extremities: Present: upper extr. pulses Results 10/09/21 11:23 10/09/21 11:23 - Imaging and Cardiology Echo: pending EKG: report reviewed, image reviewed EKG interpretations - Telemetry EKG Rhythm: Sinus Rhythm - EKG Sinus rhythms and dysrhythmias: sinus rhythm Repolarization changes or abnormalities: nonspecific abnormality, ST segment, and/or T wave Assessment and Plan Patient is a 70-year-old male with a past medical history of hypertension, arthritis, and recent COVID infection which was diagnosed last week. Patient presents to the ED with a complaint of shortness of breath which she reports has been going on for the last week and worsened over the last few days. Sepsis Pneumonia Acute respiratory failure CHF Hypertension A. fib with RVR Arthritis History of COVID-19 infection Anemia Plan: EKG shows sinus rhythm 85 no acute ischemic changes. Troponin negative x1. Patient denies any complaints of chest pain BNP noted to be elevated patient reported shortness of breath however at time of interview patient reports feeling well and appears euvolemic on exam. We will stop Lasix IV Telemetry reviewed patient appears to be going between sinus rhythm and A. fib with RVR rate up into the 130s. Will initiate metoprolol 25 mg p.o. twice daily Will initiate anticoagulation with Eliquis with close monitoring of H&H. Repeat CBC in the a.m. Echo pending Plan of care discussed with patient who verbalized standing and acknowledgment Patient seen in conjunction with Dr. Vivar who agrees with this plan of care - Patient Problems (1) Anemia Current Visit: Yes Status: Acute (2) Atrial fibrillation with RVR Current Visit: Yes Status: Acute (3) CHF (congestive heart failure) Current Visit: Yes Status: Acute Qualifiers: Heart failure chronicity: unspecified (4) Pneumonia Current Visit: Yes Status: Acute (5) Acute respiratory failure with hypoxia Current Visit: Yes Status: Acute (6) COVID-19 Current Visit: Yes Status: Acute
--- NOTE | 2021-10-10 13:10 | Consultation ---
History of Present Illness - Reason for Consult Consult date: 10/10/21 COVID-19 Requesting physician: MARIA E DAN - History of Present Illness The patient is a 70-year-old male with CHF, hypertension, BPH, urinary incontinence tested positive for COVID-19 as an outpatient. Came to the hospital with complaints of shortness of breath. Upon evaluation in the ED, hypoxic on room air. Chest x-ray showed bilateral pneumonia versus pulmonary edema. Afebrile. Labs showed WBC 14.2, NT proBNP 8018, creatinine 1.1, normal LFTs. COVID-19 here is negative. Review of Systems: General: no fevers,chills or rigors HEENT: no new visual disturbance Respiratory: Shortness of breath Cardiovascular: No chest pain, syncope Gastrointestinal: No nausea, vomiting or diarrhea Genitourinary: No dysuria or hematuria Musculoskeletal: No new or worsening neck pain or back pain Neurologic: No headaches, seizures Hematologic: No easy bruising or bleeding Endocrine: No night sweats or acute weight loss Skin: negative for rash, jaundice Psychiatric: No suicidal or homicidal ideation Past History Past Medical History: arthritis, heart failure, hypertension, other (See HPI) Past Surgical History: No surgical history, Other (Reviewed) Social history: Family history: hypertension Medications and Allergies Allergies Allergy/AdvReac Type Severity Reaction Status Date / Time Iodinated Contrast Media Allergy SWEATING Verified 01/15/19 15:51 Home Medications Medication Instructions Recorded Confirmed Last Taken Type Acetaminophen [Tylenol] 500 mg PO PRN PRN 01/15/19 01/15/19 Unknown History Sertraline [Zoloft] 100 mg PO QDAY 01/15/19 01/15/19 01/19/19 22:00 History Tamsulosin [Flomax] 0.4 mg PO QDAY 01/15/19 01/15/19 01/19/19 22:00 History hydroCHLOROthiazide [HCTZ] 25 mg PO QDAY 01/15/19 01/15/19 01/19/19 22:00 History traMADoL [Ultram] 50 mg PO Q4HR PRN 01/15/19 01/15/19 Unknown History Active Meds: Active Medications Acetaminophen (Acetaminophen 325 Mg Tab) 650 mg PO Q4H PRN PRN Reason: Pain MILD(1-3)/Fever >100.5/CALABRESE Albuterol (Albuterol 2.5 Mg/3 Ml Nebu) 2.5 mg IH Q4HRT PRN PRN Reason: Shortness Of Breath Apixaban (Apixaban 5 Mg Tab) 5 mg PO Q12HR [facility]; Protocol Ascorbic Acid (Ascorbic Acid 500 Mg Tab) 500 mg PO BID [facility] Last Admin: 10/10/21 09:02 Dose: 500 mg Azithromycin (Azithromycin 250 Mg Tab) 500 mg PO QDAY [facility]; Protocol Stop: 10/13/21 10:01 Last Admin: 10/10/21 09:02 Dose: 500 mg Cholecalciferol (Cholecalciferol (Vit D3) 400 Unit Tab) 1,000 unit PO QDAY [facility] Last Admin: 10/10/21 09:26 Dose: 1,000 unit Hydrochlorothiazide (Hydrochlorothiazide 25 Mg Tab) 25 mg PO QDAY [facility] Last Admin: 10/10/21 09:02 Dose: 25 mg Hydromorphone HCl (Hydromorphone 0.5 Mg/0.5 Ml Inj) 0.5 mg IV Q23H PRN PRN Reason: Pain , Severe (7-10) Last Admin: 10/10/21 00:33 Dose: 0.5 mg Ceftriaxone Sodium (Rocephin/Ns 2 Gm/100 Ml) 2 gm in 100 mls @ 200 mls/hr IV Q24H [facility]; Protocol Stop: 10/13/21 23:59 Last Admin: 10/09/21 22:44 Dose: 200 mls/hr Metoprolol Tartrate (Metoprolol Tartrate 25 Mg Tab) 25 mg PO BID [facility] Ondansetron HCl (Ondansetron 4 Mg/2 Ml Inj) 4 mg IV Q8H PRN PRN Reason: Nausea And Vomiting Oxycodone/Acetaminophen (Oxycodone /Acetaminophen 5-325mg Tab) 1 tab PO Q16H PRN PRN Reason: Pain, Moderate (4-6) Sertraline HCl (Sertraline 100 Mg Tab) 100 mg PO QDAY [facility] Last Admin: 10/10/21 09:00 Dose: 100 mg Sodium Chloride (Sodium Chloride 0.9% 10 Ml Flush Syringe) 10 ml IV BID [facility] Last Admin: 10/10/21 09:02 Dose: 10 ml Sodium Chloride (Sodium Chloride 0.9% 10 Ml Flush Syringe) 10 ml IV PRN PRN PRN Reason: LINE FLUSH Tamsulosin HCl (Tamsulosin 0.4 Mg Cap) 0.4 mg PO QDAY [facility] Last Admin: 10/10/21 09:02 Dose: 0.4 mg Zinc Sulfate (Zinc Sulfate 220 Mg Cap) 220 mg PO BID [facility] Last Admin: 10/10/21 09:03 Dose: 220 mg Physical Examination - Physical Exam Narrative exam: Physical Exam: Constitutional: Alert, cooperative. No acute distress Head, Ears, Nose: Normocephalic, atraumatic. External ears, nose normal Eyes: Conjunctivae/corneas clear. No icterus. No ptosis. Cardiovascular: S1, S2 + Respiratory: Few crackles bilaterally GI: Soft, non-tender; bowel sounds normal. No peritoneal signs Musculoskeletal: No pedal edema, no cyanosis. Skin: No rash or abscess Hem/Lymphatic: No palpable cervical or supraclavicular nodes. No lymphangitis Psych: Mood ok. Affect normal Neurological: Awake, alert, oriented. No gross abnormality - Constitutional Vitals: Vital Signs Temp Pulse Resp BP Pulse Ox 97.5 F L 99 H 18 121/64 93 10/10/21 12:44 10/10/21 12:44 10/10/21 12:44 10/10/21 12:44 10/10/21 12:44 Temperature -Last 24 Hours Temperature 97.5 F Temperature 98.3 F Temperature 98.5 F Temperature 97.7 F Temperature 97.7 F Results - Labs CBC & Chem 7: 10/09/21 11:23 10/09/21 11:23 Labs: Abnormal lab results 10/09/21 Range/Units 11:23 Seg Neuts % (Manual) 97.0 H (40.0-70.0) % Lymphocytes % (Manual) 3.0 L (13.4-35.0) % Seg Neutrophils # Man 13.8 H (1.8-7.7) K/mm3 Lymphocytes # (Manual) 0.4 L (1.2-5.4) K/mm3 - Imaging and Cardiology Chest x-ray: report reviewed, image reviewed (b/l airspace opacities) Assessment and Plan Cultures: SARS CoV2 PCR: Negative 10/09/2021 blood culture: In process A/P: 70-year-old male with CHF, hypertension, BPH, urinary incontinence: #Bilateral pneumonia v/s pulmonary edema: Likely latter. Reportedly got tested for COVID-19 as an outpatient, tested positive once and tested negative once as per the patient. COVID-19 PCR here is negative. #Acute hypoxic respiratory failure: with rapid improvement. #Suspected CHF: proBNP was elevated. Recs: -COVID-19 is negative, no role for Remdesivir -Patient is on room air now, no steroids indicated -Continue empiric antibiotics for now: Ceftriaxone and azithromycin -CRP, ferritin, procalcitonin ordered -Cardiology consulted, eval for diuretics Marv Nguyen MD, FACP, [facility] O: [phone] F: [phone] C: [phone]
--- NOTE | 2021-10-10 13:13 | Electrocardiograph Report ---
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
[2021-10-10] MEDS: METOPROLOL TARTRATE 25 MG TAB PO SCH ×2 (14:08→23:13)
[2021-10-10] MEDS: cefTRIAXone/NS 2 GM/100 ML 2 GM/100 ML BAG IV SCH (22:16)
[2021-10-10] MEDS: APIXABAN 5 MG TAB PO SCH (22:17)
[2021-10-10 23:37] LABS: Hematocrit 30.1 % (35.5-45.6); Hemoglobin 9.7 gm/dl (11.8-15.2); Mean Corpuscular HGB Conc 32 % (32-34); Mean Corpuscular Volume 80 fl (84-94); Platelet Count 408 K/mm3 (140-440); Red Blood Count 3.77 M/mm3 (3.65-5.03); Red Cell Distribution Width 18.2 % (13.2-15.2)
[2021-10-10 23:48] LABS: INR 0.99 (0.87-1.13)
[2021-10-10 23:49] LABS: Partial Thromboplastin Time 32.4 Sec. (24.2-36.6)
[2021-10-11 08:00] LABS: Hematocrit 31.4 % (35.5-45.6); Hemoglobin 9.7 gm/dl (11.8-15.2); Mean Corpuscular HGB Conc 31 % (32-34); Mean Corpuscular Volume 80 fl (84-94); Platelet Count 388 K/mm3 (140-440); Red Blood Count 3.94 M/mm3 (3.65-5.03); Red Cell Distribution Width 18.3 % (13.2-15.2)
[2021-10-11 08:17] LABS: C-Reactive Protein 1.1 mg/dL (0.00-1.30); Calcium 9.1 mg/dL (8.4-10.2)
[2021-10-11] MEDS: ASCORBIC ACID 500 MG TAB PO SCH (09:14)
[2021-10-11] MEDS: AZITHROMYCIN 250 MG TAB PO SCH (09:14)
[2021-10-11] MEDS: APIXABAN 5 MG TAB PO SCH (09:14)
[2021-10-11] MEDS: METOPROLOL TARTRATE 25 MG TAB PO SCH (09:15)
[2021-10-11] MEDS: TAMSULOSIN 0.4 MG CAP PO SCH (09:15)
[2021-10-11] MEDS: CHOLECALCIFEROL (VIT D3) 400 UNIT TAB PO SCH (09:15)
[2021-10-11] MEDS: SERTRALINE 100 MG TAB PO SCH (09:15)
[2021-10-11] MEDS: hydroCHLOROthiazide 25 MG TAB PO SCH (09:15)
[2021-10-11] MEDS: ZINC SULFATE 220 MG CAP PO SCH (09:17)
--- NOTE | 2021-10-11 09:41 | Discharge Summary ---
Providers - Providers Date of Admission: 10/09/21 11:55 Date of discharge: 10/11/21 Attending physician: MARIA E DAN 10/09/21 19:46 Consult to Physician [CONS] Routine Comment: Consulting Provider: KIRT LEON Physician Instructions: Reason For Exam: chf 10/10/21 08:46 Consult to Physician [CONS] Routine Comment: Consulting Provider: WEST ESPINOZA Physician Instructions: Reason For Exam: covid Primary care physician: HE[employer]EMENT[employer]ACHINE Hospitalization Reason for admission: resp failure Condition: Serious Hospital course: The patient is a 70-year-old male with CHF, hypertension, BPH, urinary incontinence tested positive for COVID-19 as an outpatient. Came to the [facility] with complaints of shortness of breath. Upon evaluation in the ED, hypoxic on room air. Chest x-ray showed bilateral pneumonia versus pulmonary edema. Afebrile. Labs showed WBC 14.2, NT proBNP 8018, creatinine 1.1, normal LFTs. COVID-19 here is negative. Patient was admitted with diagnosis of acute hypoxic respiratory failure, acute systolic heart failure, accelerated hypertension, sepsis, bilateral pneumonia and chronic anemia patient was seen by infectious disease who felt that the patient's respiratory failure was likely secondary to pulmonary edema rather than bilateral pneumonia. The acute hypoxic respiratory failure resolved quickly. Patient with no hypoxia on room air currently. Cardiology also agree with etiology of respiratory failure likely secondary to pulmonary edema rather than pneumonia. Leukocytosis was likely secondary to IV steroids initiated on admission. Leukocytosis resolved quickly. Echocardiogram completed by cardiology. Patient is felt to have received maximal hospital benefit and will be discharged home. Discharge diagnosis acute hypoxic respiratory failure secondary to systolic heart failure, accelerated hypertension and chronic anemia. Sepsis and bilateral pneumonia ruled out. Dedicated discharge time 32 minutes Disposition: 01 HOME / SELF CARE / HOMELESS Final Discharge Diagnosis (Prints w/discharge instructions): acute hypoxic respiratory failure secondary to systolic heart failure, accelerated hypertension and chronic anemia Core Measure Documentation - Palliative Care Palliative Care/ Comfort Measures: Not Applicable - Core Measures Any of the following diagnoses?: none Exam - Constitutional Vitals: Temp Pulse Resp BP Pulse Ox 97.5 F L 54 L 22 164/81 97 10/11/21 05:59 10/11/21 05:59 10/11/21 05:59 10/11/21 05:59 10/11/21 05:59 General appearance: Present: no acute distress, well-nourished - EENT Eyes: Present: PERRL ENT: hearing intact, clear oral mucosa - Neck Neck: Present: supple, normal ROM - Respiratory Respiratory effort: normal Respiratory: bilateral: CTA - Cardiovascular Heart Sounds: Present: S1 & S2. Absent: rub, click - Extremities Extremities: pulses symmetrical, No edema Peripheral Pulses: within normal limits - Abdominal General gastrointestinal: Present: soft, non-tender, non-distended, normal bowel sounds Male genitourinary: Present: normal - Integumentary Integumentary: Present: clear, warm, dry - Musculoskeletal Musculoskeletal: gait normal, strength equal bilaterally - Psychiatric Psychiatric: appropriate mood/affect, intact judgment & insight - Neurologic Neurologic: CNII-XII intact, moves all extremities Plan Activity: advance as tolerated Weight Bearing Status: Weight Bear as Tolerated Diet: low fat, low cholesterol, low salt Follow up with: PRIMARY CARE,MD [Primary Care Provider] - 7 Days Prescriptions: Apixaban [Eliquis] 5 mg PO Q12HR #60 tablet Tamsulosin [Flomax] 0.4 mg PO QDAY #30 cap hydroCHLOROthiazide [HCTZ] 25 mg PO QDAY #30 tab Metoprolol [Lopressor TAB] 25 mg PO BID #60 tablet oxyCODONE /ACETAMINOPHEN [Percocet 5/325 mg] 1 tab PO Q16H PRN #8 tablet PRN Reason: Pain, Moderate (4-6) Sertraline [Zoloft] 100 mg PO QDAY #30 tab
--- NOTE | 2021-10-11 09:46 | Progress Note ---
Assessment and Plan Cultures: SARS CoV2 PCR: Negative 10/09/2021 blood culture: no growth A/P: 70-year-old male with CHF, hypertension, BPH, urinary incontinence: #Bilateral pneumonia v/s pulmonary edema: Likely latter. Reportedly got tested for COVID-19 as an outpatient, tested positive once and tested negative once as per the patient. COVID-19 PCR here is negative. #Acute hypoxic respiratory failure: with rapid improvement. #Suspected CHF: proBNP was elevated. Recs: -CRP is low, if procalcitonin is low too, discontinue antibiotics. If procal is >0.20, give 2 days of PO Ceftin 500 mg BID and Azithromycin 500 mg daily Marv Nguyen MD, FACP, [facility] O: [phone] F: [phone] C: [phone] Subjective Date of service: 10/11/21 Interval history: No fever. Breathing well, remains on room air. Hoping he can go home. Objective - Exam Narrative Exam: Physical Exam: Constitutional: Alert, cooperative. No acute distress Head, Ears, Nose: Normocephalic, atraumatic. External ears, nose normal Eyes: Conjunctivae/corneas clear. No icterus. No ptosis. Cardiovascular: S1, S2 + Respiratory: AE fair b/l GI: Soft, non-tender; bowel sounds normal. No peritoneal signs Musculoskeletal: No pedal edema, no cyanosis. Skin: No rash or abscess Hem/Lymphatic: No palpable cervical or supraclavicular nodes. No lymphangitis Psych: Mood ok. Affect normal Neurological: Awake, alert, oriented. No gross abnormality - Constitutional Vitals: Vital Signs Temp Pulse Resp BP Pulse Ox 97.5 F L 54 L 22 164/81 97 10/11/21 05:59 10/11/21 05:59 10/11/21 05:59 10/11/21 05:59 10/11/21 05:59 Temperature -Last 24 Hours Temperature 97.5 F Temperature 97.8 F Temperature 98.8 F Temperature 97.5 F - Labs CBC & Chem 7: 10/11/21 07:19 10/11/21 07:19 Labs: Abnormal lab results 08/30/22 08/31/22 08/31/22 Range/Units 22:57 07:19 07:19 Hgb 9.7 L 9.7 L (11.8-15.2) gm/dl Hct 30.1 L 31.4 L (35.5-45.6) % MCV 80 L 80 L (84-94) fl MCH 26 L 25 L (28-32) pg MCHC 31 L (32-34) % RDW 18.2 H 18.3 H (13.2-15.2) % BUN 31 H (9-20) mg/dL
--- NOTE | 2021-10-11 12:58 | Progress Note ---
Assessment and Plan Patient is a 70-year-old male with a past medical history of hypertension, arthritis, and recent COVID infection which was diagnosed last week. Patient presents to the ED with a complaint of shortness of breath which she reports has been going on for the last week and worsened over the last few days. Sepsis Pneumonia Acute respiratory failure CHF Hypertension A. fib with RVR Arthritis History of COVID-19 infection Anemia Echo 10/09/2021-EF 40 to 45%. LV mildly dilated. Mild global hypokinesis of LV. Mild diastolic dysfunction is present impaired laxation pattern. Right ventricle is mildly dilated. Right ventricle systolic function is normal. Left atrium is mildly dilated. Borderline concentric LVH. No pericardial effusion. Plan: EKG shows sinus rhythm 85 no acute ischemic changes. Troponin negative x1. Patient denies any complaints of chest pain BNP noted to be elevated patient reported shortness of breath however at time of interview patient reports feeling well and appears euvolemic on exam. We will stop Lasix IV Telemetry reviewed patient has been trending sinus rhythm with PACs. Continue metoprolol 25 mg p.o. twice daily H&H has remained stable continue anticoagulation with Eliqujúnior Discussed importance of medication compliance with patient who verbalized understanding and acknowledgment Plan of care discussed with patient who verbalized standing and acknowledgment Cardiac status otherwise stable for discharge Patient [facility] 2 weeks after discharge Patient seen in conjunction with Dr. Mcdonough who agrees with this plan of care - Patient Problems (1) Anemia Current Visit: Yes Status: Acute (2) Atrial fibrillation with RVR Current Visit: Yes Status: Acute (3) CHF (congestive heart failure) Current Visit: Yes Status: Acute Qualifiers: Heart failure chronicity: unspecified (4) Pneumonia Current Visit: Yes Status: Acute (5) Acute respiratory failure with hypoxia Current Visit: Yes Status: Acute (6) COVID-19 Current Visit: Yes Status: Acute Subjective Date of service: 10/11/21 Principal diagnosis: A. fib, acute respiratory failure, HFrEF Interval history: Patient resting in bed in no acute distress Sinus trending 70s -80s with PACs Objective Vital Signs Temp Pulse Resp BP Pulse Ox 10/11/21 05:59 97.5 F L 54 L 22 164/81 97 10/11/21 04:00 16 98 10/10/21 23:13 64 134/85 10/10/21 22:47 97.8 F 64 20 134/85 96 10/10/21 16:00 97 10/10/21 15:50 98.8 F 68 18 134/59 95 - Physical Examination General: No Apparent Distress Neck: Positive: trachea midline Cardiac: Positive: Reg Rate and Rhythm Lungs: Positive: Normal Breath Sounds Neuro: Positive: Grossly Intact Abdomen: Positive: Soft Skin: Negative: Rash, Suspicious Lesions, Ulceration Extremities: Present: upper extr. pulses. Absent: edema - Labs and Meds Coagulation 10/10/21 Range/Units 22:57 PT 14.2 (12.2-14.9) Sec. INR 0.99 (0.87-1.13) APTT 32.4 (24.2-36.6) Sec. CBC 10/10/21 10/11/21 Range/Units 22:57 07:19 WBC 9.6 9.4 (4.5-11.0) K/mm3 RBC 3.77 3.94 (3.65-5.03) M/mm3 Hgb 9.7 L 9.7 L (11.8-15.2) gm/dl Hct 30.1 L 31.4 L (35.5-45.6) % Plt Count 408 388 (140-440) K/mm3 Comprehensive Metabolic Panel 10/10/21 10/11/21 Range/Units 22:57 07:19 Sodium 143 (137-145) mmol/L Potassium 3.9 (3.6-5.0) mmol/L Chloride 102.8 (98-107) mmol/L Carbon Dioxide 29 (22-30) mmol/L BUN 31 H (9-20) mg/dL Creatinine 1.1 1.2 (0.8-1.3) mg/dL Glucose 94 (75-100) mg/dL Calcium 9.1 (8.4-10.2) mg/dL - Imaging and Cardiology EKG: report reviewed, image reviewed Echo: report reviewed - Telemetry EKG Rhythm: Sinus Rhythm - EKG Sinus rhythms and dysrhythmias: sinus rhythm Supraventricular dysrhythmia: atrial premature complexe Repolarization changes or abnormalities: nonspecific abnormality, ST segment, and/or T wave
[2021-10-11 13:52] VITALS: BP 104/60
== END 2021-10-11 17:45 | disposition home or self-care (01) | DRG 291 ==
LOC: ED 09:47 → 3A 11:55
PROVIDERS: ADMIT Internal Medicine; ATTEND Hospitalist
PROC: 5A09357 Assistance with Respiratory Ventilation, Less than 24 Consecutive Hours, Continuous Positive Airway Pressure (ICD-10-PCS; principal; 2021-10-09)
DX: I11.0 Hypertensive heart disease with heart failure (principal); I50.21 Acute systolic (congestive) heart failure; J96.01 Acute respiratory failure with hypoxia; Z20.822 Contact with and (suspected) exposure to COVID-19; M19.90 Unspecified osteoarthritis, unspecified site; I48.91 Unspecified atrial fibrillation; D64.9 Anemia, unspecified; E66.01 Morbid (severe) obesity due to excess calories; I27.20 Pulmonary hypertension, unspecified; N40.0 Benign prostatic hyperplasia without lower urinary tract symptoms; Z87.891 Personal history of nicotine dependence; Z91.041 Radiographic dye allergy status; Z82.49 Family history of ischemic heart disease and other diseases of the circulatory system; Z86.16 Personal history of COVID-19; Z68.29 Body mass index [BMI] 29.0-29.9, adult
CPT/HCPCS: 36415; 71045; 80048; 80053; 82140; 82550; 82565; 82728; 83735; 83880; 84145; 84484; 85007; 85025; 85027; 85610; 85730; 86140; 87040; 93005; 93306; G0378; C8929; J0456; J0696; J1100; J1170; J1644; J1940; J2920; U0003